=== PATIENT | male | born 1990 | race Caucasian/White ===

== ENCOUNTER 2016-09-12 12:16 | Emergency (ER) | payer OTHER ==
[~2016-09-12] VITALS: Ht 193 cm; Wt 86.0 kg
[2016-09-12 12:18] VITALS: TEMP 36.4; Ht 193 cm; Wt 86.0 kg
[2016-09-12] MEDS ORDERED: ABL/5 PO (12:33)
[2016-09-12] MEDS ORDERED: CNC/27 PO (12:33)
[2016-09-12 13:29] VITALS: BP 128/72; PULSE 76; O2SAT 98
--- NOTE | 2016-09-12 21:43 | EMERGENCY ROOM VISIT NOTE ---
ED Visit Note First contact with patient: 12:45 Chief Complaint: Wound recheck. History of Present Illness: Mr. Beck is a 26-year-old white male who ambulates into the ED requesting a wound recheck. Patient reports 3 weeks ago he had a surgical repair of a left clavicle fracture performed by an orthopedic surgeon in [place], [place]. He reports on his last postop visit he was doing fine. Patient reports overnight his Steri-Strips fell off and now he is noticed widening of his scar over the distal aspect. He has noted a small amount of serous sanguinous fluid from this area. He is requesting a wound recheck. He is not experiencing any pain in the area of his incision and he denies any signs of infection. Review of Systems: As noted above in history of present illness. Past Medical History: As previously noted, bronchitis, pneumonia. Current Medications: Concerta, Abilify. Allergies to Medications: Amoxicillin. Social History: Patient is currently employed; he feels safe in his home environment; he denies tobacco use and admits to alcohol use. Physical Examination: Vital Signs: Date Time Temp Pulse Resp B/P (MAP) Pulse Ox O2 Delivery O2 Flow Rate FiO2 09/12/16 13:29 76 18 128/72 98 09/12/16 12:18 36.4 64 16 118/77 100 GENERAL: 26-year-old male in no acute distress, nontoxic-appearing, afebrile and hemodynamically stable. NEUROLOGICAL: Awake, alert and oriented to person, place and time. Answering questions appropriately and following commands. SKIN: Warm, dry and pink. Left Clavicle: Patient has a surgical scar that measures approximately 8-10 cm in length. The proximal aspect of the scar is healing well. The lateral half of the scar shows that the scar is widened with some mild serous sanguinous drainage. There is no actual dehiscence of the wound. There is no local signs of infection. ED Course: Patient is assessed as noted above. Patient's medication list was reviewed. I did reinforce the wound with new Steri-Strips and placed a sterile gauze pad over a small area of the wound that was draining serous sanguinous fluid. Patient was educated about today's findings and instructed on his treatment plan ; he verbalizes understanding and agreement with this plan. Clinical Impression: Wound recheck. Disposition: Patient discharged home in stable condition; prior to departure he was reassessed and subjectively reported he was pain and symptom-free. Plan: Patient was encouraged to keep his upcoming recheck with his orthopedic surgeon later this week for definitive care and treatment. Patient was encouraged to watch his wound for any signs of infection. Patient was encouraged return to the ED for any signs of infection or any new/ concerning symptoms.
== END 2016-09-12 13:30 | disposition home or self-care (01) ==
LOC: C.EDB 12:19 → C.EDD 13:30
DX: Z48.89 Encounter for other specified surgical aftercare (principal)